=== PATIENT | female | born 1965 | race Two or more races ===

== ENCOUNTER 2017-05-17 13:04 | Emergency (ER) | payer BC ==
[2017-05-17 13:08] VITALS: BMI 25.0
--- NOTE | 2017-05-17 13:33 | PDOC ---
History of Present Illness - General Chief Complaint: Edema Stated Complaint: RT CALF SWELLING (REFERRED) Time Seen by Provider: 05/17/17 13:18 History Source: Patient Exam Limitations: No Limitations - History of Present Illness Initial Comments: 05/17/17 13:32 The patient is a 51 year old female, with a significant past medical history of HTN, who presents to the emergency department with Right lower leg swelling x 2 weeks. Patient states she had pain in that leg originally, which has resolved. However, the swelling has not. Patient went into urgent care today and was sent into the ED. Patient denies any recent travel, OCP use, chest pain, shortness of breath, headache and dizziness. Denies fever, chills, nausea, vomit, diarrhea and constipation. Denies dysuria, frequency, urgency and hematuria. Denies any hx of blood disorders Allergies: nkda Past surgical history: Appendectomy Social history: +smoking 1/2 ppd x 30 years PMD - Dr. Sood 05/17/17 13:44 Past History - Past Medical History Allergies/Adverse Reactions: Allergies Allergy/AdvReac Type Severity Reaction Status Date / Time No Known Allergies Allergy Verified 05/17/17 13:08 Home Medications: Ambulatory Orders Amlodipine Besylate/Benazepril [Lotrel 10-20 mg Capsule] 1 cap PO DAILY Atenolol [Tenormin -] 50 mg PO DAILY 05/17/17 HTN: Yes - Surgical History Appendectomy: Yes - Suicide/Smoking/Psychosocial Hx Smoking History: Current every day smoker Number of Cigarettes Smoked Daily: 8 Information on smoking cessation initiated: No Hx Alcohol Use: No Drug/Substance Use Hx: No Review of Systems - Review of Systems Able to Perform ROS?: Yes Comments:: 05/17/17 13:32 GENERAL/CONSTITUTIONAL: No fever or chills. No weakness. HEAD, EYES, EARS, NOSE AND THROAT: No change in vision. No ear pain or discharge. No sore throat. CARDIOVASCULAR: No chest pain or shortness of breath RESPIRATORY: No cough, wheezing, or hemoptysis. GASTROINTESTINAL: No nausea, vomiting, diarrhea or constipation. GENITOURINARY: No dysuria, frequency, or change in urination. MUSCULOSKELETAL: No joint or muscle pain. No neck or back pain. +RLE swelling SKIN: No rash NEUROLOGIC: No headache, vertigo, loss of consciousness, or change in strength/ sensation. ENDOCRINE: No increased thirst. No abnormal weight change HEMATOLOGIC/LYMPHATIC: No anemia, easy bleeding, or history of blood clots. ALLERGIC/IMMUNOLOGIC: No hives or skin allergy. *Physical Exam - Vital Signs Last Vital Signs Temp Pulse Resp BP Pulse Ox 98.0 F 76 18 132/87 100 05/17/17 13:05 05/17/17 13:05 05/17/17 13:05 05/17/17 13:05 05/17/17 13:05 - Physical Exam Comments: 05/17/17 13:32 GENERAL: Awake, alert, and fully oriented, in no acute distress HEAD: No signs of trauma, normocephalic, atraumatic EYES: PERRLA, EOMI, sclera anicteric, conjunctiva clear ENT: Auricles normal inspection, hearing grossly normal, nares patent, oropharynx clear without exudates. Moist mucosa NECK: Normal ROM, supple, no lymphadenopathy, JVD, or masses LUNGS: No distress, speaks full sentences, clear to auscultation bilaterally HEART: Regular rate and rhythm, normal S1 and S2, no murmurs, rubs or gallops, peripheral pulses normal and equal bilaterally. ABDOMEN: Soft, nontender, normoactive bowel sounds. No guarding, no rebound. No masses EXTREMITIES: Normal inspection, Normal range of motion, +RLE edema (Right > Left ). No clubbing or cyanosis. NEUROLOGICAL: Cranial nerves II through XII grossly intact. Normal speech, normal gait, no focal sensorimotor deficits SKIN: Warm, Dry, normal turgor, no rashes or lesions noted. ED Treatment Course - LABORATORY CBC & Chemistry Diagram: 05/17/17 13:50 05/17/17 13:50 Medical Decision Making - Medical Decision Making 05/17/17 13:44 The patient is a 51 year old female, with a significant past medical history of HTN, who presents to the emergency department with Right lower leg swelling x 2 weeks. Given hx and physical exam, differential includes DVT, venous insufficiency, heart failure, lymphedema. Plan: CBC, CMP, BNP, Coags, Duplex u/s of RLE. 05/17/17 15:52 CBC unremarkable CMP- unremarkable BNP-207 Duplex- hypoechoic lesion in right medial calf. Patient stable for d/c. Patient will f/u with PMD to further evaluate lesion *DC/Admit/Observation/Transfer Diagnosis at time of Disposition: Swelling of right lower extremity - Discharge Dispostion Disposition: HOME Condition at time of disposition: Stable - Patient Instructions Additional Instructions: Please follow up with your primary care provider (Dr. Sood) within 1 week to follow up the lesion found on your right calf. If you notice chest pain, shortness of breath, or your leg is becoming more swollen or painful, please come back to the hospital immediately.
[2017-05-17 14:13] LABS: BASOPHIL 0.6 % (0-2.0); EOSINOPHIL 1.2 % (0-4.5); MCH 34.1 pg (25.7-33.7); MCHC 32.9 g/dl (32.0-36.0); MEAN CELL VOLUME 103.7 fl (80-96); MEAN PLT VOLUME 7.9 fl (7.5-11.1); NEUTROPHILS 64.6 % (42.8-82.8); PLATELET COUNT 200 K/MM3 (134-434); RDW 14.3 % (11.6-15.6); WHITE BLOOD COUNT 6.8 K/mm3 (4.0-10.0)
[2017-05-17 14:25] LABS: ALBUMIN 4.2 g/dl (3.4-5.0); ANION GAP 11 (8-16); BILIRUBIN,TOTAL 0.4 mg/dL (0.2-1.0); CALCIUM 9.4 mg/dL (8.5-10.1); CO2 25 mmol/L (21-32); CREATININE 0.8 mg/dL (0.55-1.02); GLUCOSE,RANDOM 75 mg/dL (74-106); SGOT/AST 73 U/L (15-37); SGPT/ALT 50 U/L (12-78); TOT PROT 7.8 g/dl (6.4-8.2)
[2017-05-17 14:27] LABS: ALK PHOS 95 U/L (45-117)
[2017-05-17 14:39] LABS: INR 0.98 (0.82-1.09); PROTHROMBIN TIME (PATIENT) 10.8 SEC (9.98-11.88)
--- NOTE | 2017-05-17 14:41 | PDOC ---
Attending Attestation - Resident Resident Name: LouiekavitaGio - ED Attending Attestation I have performed the following: I have examined & evaluated the patient, The case was reviewed & discussed with the resident, I agree w/resident's findings & plan, Exceptions are as noted - HPI HPI: 05/17/17 14:39 51 F with h/o HTN presents to ER with RLE swelling x 2 weeks. Pt reports initially having some cramp-like pain in the leg and felt a lump in the back of her calf. Since then, the pain has resolved, but the leg has been persistently swollen. She denies any falls or trauma to the leg. No h/o DVT/PE. Not on OCP or estrogen. No h/o immobilization or recent travel. Denies CP/SOB. - Physicial Exam PE: 05/17/17 14:40 "GENERAL: Awake, alert, and fully oriented, in no acute distress HEAD: No signs of trauma EYES: PERRLA, EOMI, sclera anicteric, conjunctiva clear ENT: Auricles normal inspection, hearing grossly normal, nares patent, oropharynx clear without exudates. Moist mucosa NECK: Nontender, no stepoffs, Normal ROM, supple, no lymphadenopathy, JVD, or masses LUNGS: Breath sounds equal, clear to auscultation bilaterally. No wheezes, and no crackles HEART: Regular rate and rhythm, normal S1 and S2, no murmurs, rubs or gallops ABDOMEN: Soft, nontender, normoactive bowel sounds. No guarding, no rebound. No masses EXTREMITIES: RLE +1 edema, no palpable cords or calf tenderness NEUROLOGICAL: Cranial nerves II through XII intact. 5/5 strength and sensation in all extremities, Normal speech, normal gait SKIN: Warm, Dry, normal turgor, no rashes or lesions noted. " - Medical Decision Making 05/17/17 14:40 51 F with asymmetric leg swelling x 2 weeks, concerning for DVT. Pt with no s/s PE at this time. Vitals stable. - Labs - RLE doppler 05/17/17 15:54 US negative for DVT. Possible hematoma vs phlegmon found. Pt with no signs of infection on exam. Leg is nontender. Likely hematoma.
[2017-05-17 14:42] LABS: ACTIVATED PTT 31.9 SECONDS (26.9-34.4)
[2017-05-17 16:49] VITALS: BP 128/77; PULSE 74; TEMP 98
== END 2017-05-17 16:20 | disposition home or self-care (01) ==
LOC: JER 13:04
DX: R22.41 Localized swelling, mass and lump, right lower limb (principal); F17.210 Nicotine dependence, cigarettes, uncomplicated; I10 Essential (primary) hypertension
CPT/HCPCS: 36415; 80053; 83880; 85025; 85610; 85730; 93971-TC; 99284-25

== ENCOUNTER 2020-12-25 15:00 | Emergency (ER) | payer BC ==
[2020-12-25 15:09] VITALS: BP 119/84; PULSE 80; TEMP 98.1; BMI 26.6
[2020-12-25 17:41] LABS: BASO % 0.9 % (0-2.0); EOS % 0.7 % (0-4.5); HEMATOCRIT 37.9 % (32.4-45.2); HEMOGLOBIN 12.8 GM/dL (10.7-15.3); LYMPH % 36.3 % (8-40); MCH 36.3 pg (25.7-33.7); MCHC 33.7 g/dl (32.0-36.0); MEAN CELL VOLUME 107.8 fl (80-96); MEAN PLT VOLUME 8.6 fl (7.5-11.1); MONO % 11.3 % (3.8-10.2); NEUT % 50.8 % (42.8-82.8); PLATELET COUNT 204 K/MM3 (134-434); RBC 3.52 M/mm3 (3.60-5.2); RDW 14.7 % (11.6-15.6); WHITE BLOOD COUNT 5.3 K/mm3 (4.0-10.0)
[2020-12-25 17:51] LABS: CALCIUM 8.6 mg/dL (8.5-10.1)
[2020-12-25 17:52] LABS: ALBUMIN 4.2 g/dl (3.4-5.0); BLOOD UREA NITROGEN 13.6 mg/dL (7-18)
[2020-12-25 17:55] LABS: BILIRUBIN,TOTAL 0.4 mg/dL (0.2-1); CREATININE 0.7 mg/dL (0.55-1.3)
[2020-12-25 17:57] LABS: TOT PROT 8.1 g/dl (6.4-8.2)
[2020-12-25 18:35] LABS: ANISOCYTOSIS 2+; MACROCYTOSIS 2+; PLATELET ESTIMATE ADEQUATE
== END 2020-12-25 19:45 | disposition home or self-care (01) ==
LOC: JER 15:00
DX: M79.604 Pain in right leg (principal)
CPT/HCPCS: 36415; 80053; 85025; 99283-25

== ENCOUNTER 2022-05-08 20:17 | Inpatient (IN) | payer BC ==
[2022-05-08 22:18] LABS: BASO % 0.7 % (0-2.0); EOS % 1.1 % (0-4.5); HEMATOCRIT 35.7 % (32.4-45.2); LYMPH % 33.6 % (8-40); MCH 35.9 pg (25.7-33.7); MCHC 33.7 g/dl (32.0-36.0); MEAN CELL VOLUME 106.6 fl (80-96); MEAN PLT VOLUME 8.4 fl (7.5-11.1); MONO % 14.3 % (3.8-10.2); NEUT % 50.3 % (42.8-82.8); PLATELET COUNT 161 10^3/uL (134-434); RBC 3.35 M/mm3 (3.60-5.2); RDW 14.8 % (11.6-15.6); WHITE BLOOD COUNT 4.4 K/mm3 (4.0-10.0)
[2022-05-08 22:20] LABS: EPI CELLS >36 /uL (0-25.1); HYALINE CASTS 75 /uL (0-3.1); PH,URINE 5.5 (5.0-8.0); URINE APPEARANCE TURBID; URINE BACTERIA 7705 /uL (0-1359); URINE BILIRUBIN 3+ (NEGATIVE); URINE COLOR DK YELLOW; URINE GLUCOSE (UA) NEGATIVE (NEGATIVE); URINE KETONE 1+ (NEGATIVE); URINE LEUK ESTERASE 1+ (NEGATIVE); URINE NITRITE POSITIVE (NEGATIVE); URINE PROTEIN 2+ (NEGATIVE); URINE WBC 79 /uL (0-25.8)
[2022-05-08 22:25] LABS: INR 1.09 (0.83-1.09); PROTHROMBIN TIME (PATIENT) 12.6 SEC (9.7-13.0)
[2022-05-08 22:27] LABS: ACTIVATED PTT 29.8 SECONDS (25.2-36.5)
[2022-05-08 22:36] LABS: CHLORIDE 98 mmol/L (98-107); SODIUM 139 mmol/L (136-145)
[2022-05-08 22:38] LABS: ALBUMIN 3.5 g/dl (3.4-5.0); ANION GAP 13 MMOL/L (8-16); CALCIUM 8.6 mg/dL (8.5-10.1); CO2 27 mmol/L (21-32)
[2022-05-08 22:39] LABS: BLOOD UREA NITROGEN 16.1 mg/dL (7-18)
[2022-05-08 22:40] LABS: GLUCOSE,RANDOM 116 mg/dL (74-106)
[2022-05-08 22:41] LABS: SGPT/ALT 66 U/L (13-61)
[2022-05-08 22:42] LABS: CHOLESTEROL 193 mg/dL (50-200); CREATININE 0.8 mg/dL (0.55-1.3); SGOT/AST 145 U/L (15-37)
[2022-05-08 22:43] LABS: TOT PROT 7.1 g/dl (6.4-8.2); TRIGLYCERIDES 101 mg/dL (0-150)
[2022-05-08 22:44] LABS: BILIRUBIN,TOTAL 0.7 mg/dL (0.2-1); HDL CHOLESTEROL 79 mg/dL (40-60); LDL CHOLESTEROL (ONLY SJRH) 92 mg/dL (5-100); URINE RBC 42 /uL (0-23.9)
[2022-05-08 22:45] LABS: ALK PHOS 182 U/L (45-117)
[2022-05-08] MEDS ORDERED: CEFTRIAXONE 1,000 MG in DEXTROSE 5%-WATER - 50 ML IVPB ONE (22:48)
[2022-05-08] MEDS ORDERED: POTASSIUM CHLORIDE TABS 20 MEQ TABLET.ER (FP) PO ONE (22:48)
[2022-05-08 22:56] LABS: ANISOCYTOSIS 1+; MACROCYTOSIS 2+; TARGET CELLS 2+
[2022-05-08] MEDS ORDERED: POTASSIUM CHLORIDE ORAL LIQUID 20 MEQ/15 ML ONE (23:07)
[2022-05-08] MEDS ORDERED: CEFTRIAXONE 1 GM/50 ML BAG ONE (23:07)
[2022-05-09 02:07] LABS: MAGNESIUM 0.9 mg/dL (1.8-2.4)
[2022-05-09 02:11] LABS: PHOSPHOROUS 2.6 mg/dL (2.5-4.9)
[2022-05-09] MEDS ORDERED: POTASSIUM CHLORIDE ORAL LIQUID 20 MEQ/15 ML PO ONE (02:18)
[2022-05-09] MEDS ORDERED: FOLIC ACID INJECTION - 1 MG, THIAMINE HCL 100 MG, MULTIVIT INJECTION ADULT 10 ML in SOD... IVPB ONE (02:21)
[2022-05-09] MEDS ORDERED: KCL 10 MEQ IVPB 30 MEQ/300 ML INFUS.BAG IVPB ONE (02:27)
[2022-05-09] MEDS ORDERED: POTASSIUM CHLORIDE ORAL LIQUID 20 MEQ/15 ML ONE (02:27)
[2022-05-09] MEDS ORDERED: MAGNESIUM 4GM/H20 - 4 GM/100 ML IVPB IVPB ONE (02:30)
[2022-05-09] MEDS: KCL 10 MEQ IVPB 10 MEQ/100 ML INFUS.BAG IVPB SCH ×3 (02:36→04:58)
[2022-05-09] MEDS ORDERED: LORazepam 1 MG TABLET PO PRN (02:36)
[2022-05-09] MEDS ORDERED: MAGNESIUM SULFATE IN WATER 4 GM/50 ML BAG IVPB ONE (02:45)
[2022-05-09] MEDS: DEXTROSE 5%-NORMAL SALINE 1,000 ML IV SCH ×2 (03:37→14:30)
[2022-05-09] MEDS ORDERED: LOPERAMIDE HCL 2 MG CAPSULE PO ONE (04:29)
[2022-05-09] MEDS ORDERED: LORazepam 1 MG TABLET PO SCH (05:00)
[2022-05-09] MEDS ORDERED: LORazepam 1 MG TABLET ONE (05:11)
[2022-05-09 07:16] LABS: BASO % 0.5 % (0-2.0); EOS % 1.5 % (0-4.5); HEMATOCRIT 32.1 % (32.4-45.2); HEMOGLOBIN 10.9 GM/dL (10.7-15.3); LYMPH % 29.9 % (8-40); MCH 36.4 pg (25.7-33.7); MCHC 33.9 g/dl (32.0-36.0); MEAN CELL VOLUME 107.4 fl (80-96); MEAN PLT VOLUME 8.6 fl (7.5-11.1); MONO % 15.9 % (3.8-10.2); NEUT % 52.2 % (42.8-82.8); PLATELET COUNT 153 10^3/uL (134-434); RBC 2.99 M/mm3 (3.60-5.2); RDW 14.7 % (11.6-15.6); WHITE BLOOD COUNT 4.5 K/mm3 (4.0-10.0)
[2022-05-09 07:43] LABS: ALBUMIN 3.1 g/dl (3.4-5.0); BLOOD UREA NITROGEN 15.3 mg/dL (7-18); CALCIUM 8.1 mg/dL (8.5-10.1); MAGNESIUM 2.7 mg/dL (1.8-2.4)
[2022-05-09 07:46] LABS: CREATININE 0.7 mg/dL (0.55-1.3); PHOSPHOROUS 1.5 mg/dL (2.5-4.9)
[2022-05-09 07:48] LABS: BILIRUBIN,TOTAL 0.8 mg/dL (0.2-1); TOT PROT 6.3 g/dl (6.4-8.2)
[2022-05-09] MEDS ORDERED: LORazepam 2 MG/ML SDV VIAL IVPUSH PRN (08:30)
[2022-05-09] MEDS ORDERED: NAPH,MB-DB/K PH,MBDB POWDER PACKET PO ONE ×2 (09:04→14:12)
[2022-05-09] MEDS ORDERED: THIAMINE HCL 200 MG/2 ML VIAL ONE (09:56)
[2022-05-09] MEDS ORDERED: ENOXAPARIN NA (PORCINE) 40 MG/0.4 ML DISP.SYRIN SQ ONE (09:57)
[2022-05-09] MEDS ORDERED: FOLIC ACID 1 MG TABLET (FP) ONE (09:57)
[2022-05-09] MEDS ORDERED: NICOTINE 7 MG/24 HOURS TOPICAL PATCH TD ONE (09:57)
[2022-05-09] MEDS ORDERED: NAPH,MB-DB/K PH,MBDB POWDER PACKET ONE (09:57)
[2022-05-09] MEDS: FOLIC ACID 1 MG TABLET (FP) PO SCH (09:58)
[2022-05-09] MEDS: NICOTINE 7 MG/24 HOURS TOPICAL PATCH TD SCH (09:58)
[2022-05-09] MEDS: ENOXAPARIN NA (PORCINE) 40 MG/0.4 ML DISP.SYRIN SQ SCH (09:58)
[2022-05-09] MEDS: THIAMINE HCL 200 MG/2 ML VIAL IVPB SCH (09:58)
[2022-05-09] MEDS ORDERED: THIAMINE HCL 100 MG TABLET (FP) PO SCH (10:00)
[2022-05-09 11:00] VITALS: RESP 18
[2022-05-09 12:20] VITALS: BMI 30.9
[2022-05-09] MEDS: CEFTRIAXONE 1 GM in DEXTROSE 5%-WATER - 50 ML IVPB SCH (22:45)
[2022-05-10] MEDS: DEXTROSE 5%-NORMAL SALINE 1,000 ML IV SCH ×2 (02:55→11:07)
[2022-05-10] MEDS ORDERED: LORazepam 1 MG TABLET PO SCH (05:00)
[2022-05-10 09:37] LABS: HEMATOCRIT 31.3 % (32.4-45.2); HEMOGLOBIN 10.3 GM/dL (10.7-15.3); MCH 35.8 pg (25.7-33.7); MEAN CELL VOLUME 108.5 fl (80-96); MEAN PLT VOLUME 9.1 fl (7.5-11.1); PLATELET COUNT 174 10^3/uL (134-434); RBC 2.88 M/mm3 (3.60-5.2); RDW 15.2 % (11.6-15.6); WHITE BLOOD COUNT 4.4 K/mm3 (4.0-10.0)
[2022-05-10] MEDS ORDERED: PATIENT'S OWN MEDICATION (NON-FORMULARY) (Amlodipine Besylate/Benazepril [Lotrel 10-20 Mg PO SCH (10:00)
[2022-05-10 10:22] LABS: ALBUMIN 2.8 g/dl (3.4-5.0); CALCIUM 7.6 mg/dL (8.5-10.1)
[2022-05-10 10:24] LABS: BLOOD UREA NITROGEN 5.6 mg/dL (7-18); MAGNESIUM 1.6 mg/dL (1.8-2.4)
[2022-05-10 10:25] LABS: CREATININE 0.6 mg/dL (0.55-1.3)
[2022-05-10 10:26] LABS: PHOSPHOROUS 2.8 mg/dL (2.5-4.9)
[2022-05-10 10:27] LABS: BILIRUBIN,TOTAL 0.3 mg/dL (0.2-1); TOT PROT 5.6 g/dl (6.4-8.2)
[2022-05-10] MEDS ORDERED: MAGNESIUM 2GM/50ML STERILE WATER IVPB IVPB ONE (10:47)
[2022-05-10] MEDS: CEFTRIAXONE 1 GM in DEXTROSE 5%-WATER - 50 ML IVPB SCH (10:57)
[2022-05-10] MEDS: ENOXAPARIN NA (PORCINE) 40 MG/0.4 ML DISP.SYRIN SQ SCH (10:58)
[2022-05-10] MEDS: amLODIPine BESYLATE 10 MG TABLET (FP) PO SCH (11:00)
[2022-05-10] MEDS: NICOTINE 7 MG/24 HOURS TOPICAL PATCH TD SCH (11:00)
[2022-05-10] MEDS: FOLIC ACID 1 MG TABLET (FP) PO SCH (11:00)
[2022-05-10] MEDS: LISINOPRIL 20 MG TABLET PO SCH (11:00)
[2022-05-10] MEDS: ATENOLOL 50 MG TABLET (FP) PO SCH (11:00)
[2022-05-10] MEDS: THIAMINE HCL 200 MG/2 ML VIAL IVPB SCH ×2 (11:01→21:26)
[2022-05-10] MEDS: CYANOCOBALAMIN 1,000 MCG TABLET (FP) PO SCH (17:48)
[2022-05-11] MEDS ORDERED: LORazepam 0.5 MG TABLET PO PRN
[2022-05-11] MEDS: DEXTROSE 5%-NORMAL SALINE 1,000 ML IV SCH (02:32)
[2022-05-11] MEDS ORDERED: LORazepam 0.5 MG TABLET PO SCH (05:00)
[2022-05-11] MEDS: THIAMINE HCL 200 MG/2 ML VIAL IVPB SCH ×3 (06:51→21:29)
[2022-05-11 07:58] LABS: HEMATOCRIT 28.9 % (32.4-45.2); HEMOGLOBIN 9.8 GM/dL (10.7-15.3); MCH 36.2 pg (25.7-33.7); MCHC 33.8 g/dl (32.0-36.0); MEAN CELL VOLUME 107.1 fl (80-96); MEAN PLT VOLUME 8.1 fl (7.5-11.1); PLATELET COUNT 161 10^3/uL (134-434); WHITE BLOOD COUNT 4.3 K/mm3 (4.0-10.0)
[2022-05-11 08:08] LABS: ALBUMIN 2.6 g/dl (3.4-5.0); BLOOD UREA NITROGEN 3.5 mg/dL (7-18); CALCIUM 7.7 mg/dL (8.5-10.1); MAGNESIUM 1.6 mg/dL (1.8-2.4)
[2022-05-11 08:12] LABS: BILIRUBIN,TOTAL 0.3 mg/dL (0.2-1); CREATININE 0.6 mg/dL (0.55-1.3); PHOSPHOROUS 3.2 mg/dL (2.5-4.9); TOT PROT 5.3 g/dl (6.4-8.2)
[2022-05-11] MEDS: CEFTRIAXONE 1 GM in DEXTROSE 5%-WATER - 50 ML IVPB SCH (09:56)
[2022-05-11] MEDS: FOLIC ACID 1 MG TABLET (FP) PO SCH (09:56)
[2022-05-11] MEDS: LISINOPRIL 20 MG TABLET PO SCH (09:56)
[2022-05-11] MEDS: ATENOLOL 50 MG TABLET (FP) PO SCH (09:56)
[2022-05-11] MEDS: amLODIPine BESYLATE 10 MG TABLET (FP) PO SCH (09:56)
[2022-05-11] MEDS: ENOXAPARIN NA (PORCINE) 40 MG/0.4 ML DISP.SYRIN SQ SCH (09:56)
[2022-05-11] MEDS: NICOTINE 7 MG/24 HOURS TOPICAL PATCH TD SCH (09:56)
[2022-05-11] MEDS: CYANOCOBALAMIN 1,000 MCG TABLET (FP) PO SCH (10:03)
[2022-05-11] MEDS ORDERED: MAGNESIUM SULF 50% (8.12 MEQ/2 ML-1 GM VIAL) IVPB ONE (11:45)
[2022-05-12] MEDS ORDERED: LORazepam 0.5 MG TABLET PO ONE (05:00)
[2022-05-12] MEDS: THIAMINE HCL 200 MG/2 ML VIAL IVPB SCH ×2 (07:23→14:49)
[2022-05-12 10:14] LABS: HEMOGLOBIN 11.3 GM/dL (10.7-15.3); MCH 35.8 pg (25.7-33.7); MCHC 33.3 g/dl (32.0-36.0); MEAN CELL VOLUME 107.4 fl (80-96); MEAN PLT VOLUME 8.2 fl (7.5-11.1); PLATELET COUNT 207 10^3/uL (134-434); RBC 3.17 M/mm3 (3.60-5.2); RDW 15.1 % (11.6-15.6); WHITE BLOOD COUNT 4.5 K/mm3 (4.0-10.0)
[2022-05-12] MEDS: amLODIPine BESYLATE 10 MG TABLET (FP) PO SCH (10:44)
[2022-05-12] MEDS: CEFTRIAXONE 1 GM in DEXTROSE 5%-WATER - 50 ML IVPB SCH (10:44)
[2022-05-12] MEDS: ATENOLOL 50 MG TABLET (FP) PO SCH (10:44)
[2022-05-12] MEDS: LISINOPRIL 20 MG TABLET PO SCH (10:44)
[2022-05-12] MEDS: NICOTINE 7 MG/24 HOURS TOPICAL PATCH TD SCH (10:45)
[2022-05-12] MEDS: CYANOCOBALAMIN 1,000 MCG TABLET (FP) PO SCH (10:45)
[2022-05-12] MEDS: ENOXAPARIN NA (PORCINE) 40 MG/0.4 ML DISP.SYRIN SQ SCH (10:45)
[2022-05-12] MEDS: FOLIC ACID 1 MG TABLET (FP) PO SCH (10:45)
[2022-05-12 10:49] LABS: BILIRUBIN,TOTAL 0.4 mg/dL (0.2-1); BLOOD UREA NITROGEN 4.8 mg/dL (7-18); CALCIUM 8.7 mg/dL (8.5-10.1); CREATININE 0.8 mg/dL (0.55-1.3); MAGNESIUM 1.6 mg/dL (1.8-2.4); TOT PROT 6.5 g/dl (6.4-8.2)
[2022-05-12 10:51] LABS: ALBUMIN 3.2 g/dl (3.4-5.0)
[2022-05-12 12:59] LABS: PHOSPHOROUS 3.6 mg/dL (2.5-4.9)
[2022-05-12 15:40] VITALS: BP 110/76; PULSE 75; TEMP 98.1
== END 2022-05-12 15:57 | disposition home or self-care (01) | DRG 92 ==
LOC: JER 20:17 → JERBED 21:43 → J6S 05-09 11:41
PROVIDERS: ADMIT Internal Medicine; ATTEND Internal Medicine
DX: R26.81 Unsteadiness on feet (principal); E51.2 Wernicke's encephalopathy; N39.0 Urinary tract infection, site not specified; R42 Dizziness and giddiness; I10 Essential (primary) hypertension; E87.6 Hypokalemia; E83.42 Hypomagnesemia; E83.39 Other disorders of phosphorus metabolism; R19.7 Diarrhea, unspecified
CPT/HCPCS: 0241U-QW; 36415; 70450-TC; 70551-TC; 71046-TC-FY; 76705-TC; 80048; 80053; 80061; 80307; 81003; 82550; 82607; 82746; 82962; 83036; 83735; 84100; 84484; 85025; 85027; 85610; 85730; 86704; 86803; 86850; 86900; 86901; 87086; 87340; 87517; 93005; 93010; 97116-GP; 97162-GP; 99285-25

== ENCOUNTER 2022-11-23 20:56 | Observation (INO) | payer BC ==
[2022-11-23] MEDS ORDERED: LACTATED RINGERS SOLUTION 1000 ML INFUS.BAG IV ONE (21:49)
[2022-11-23 22:19] LABS: BASO % 0.8 % (0-2.0); EOS % 1.3 % (0-4.5); HEMATOCRIT 34.1 % (32.4-45.2); HEMOGLOBIN 11.7 GM/dL (10.7-15.3); LYMPH % 31.2 % (8-40); MCH 35.5 pg (25.7-33.7); MCHC 34.2 g/dl (32.0-36.0); MEAN CELL VOLUME 103.8 fl (80-96); MEAN PLT VOLUME 8.9 fl (7.5-11.1); MONO % 13.7 % (3.8-10.2); PLATELET COUNT 128 10^3/uL (134-434); RBC 3.29 M/mm3 (3.60-5.2); RDW 15.4 % (11.6-15.6); WHITE BLOOD COUNT 5.9 K/mm3 (4.0-10.0)
[2022-11-23 22:36] LABS: POTASSIUM 3.1 mmol/L (3.5-5.1)
[2022-11-23 22:37] LABS: CALCIUM 8.1 mg/dL (8.5-10.1)
[2022-11-23 22:38] LABS: ALBUMIN 3.7 g/dl (3.4-5.0); BLOOD UREA NITROGEN 49.8 mg/dL (7-18)
[2022-11-23] MEDS ORDERED: POTASSIUM CHLORIDE ORAL LIQUID 20 MEQ/15 ML PO ONE (22:40)
[2022-11-23] MEDS ORDERED: MAGNESIUM SULF 50% (8.12 MEQ/2 ML-1 GM VIAL) IVPB ONE (22:40)
[2022-11-23 22:43] LABS: BILIRUBIN,TOTAL 0.9 mg/dL (0.2-1); TOT PROT 7.4 g/dl (6.4-8.2)
[2022-11-23] MEDS ORDERED: MAGNESIUM SULFATE IN WATER 2 GM/50 ML IVPB IVPB ONE (22:44)
[2022-11-23] MEDS ORDERED: POTASSIUM CHLORIDE ORAL LIQUID 20 MEQ/15 ML ONE (22:44)
[2022-11-24 00:15] LABS: EPI CELLS >36 /uL (0-25.1); HYALINE CASTS 4 /uL (0-3.1); PH,URINE 5.5 (5.0-8.0); URINE APPEARANCE CLEAR; URINE BACTERIA 313 /uL (0-1359); URINE BILIRUBIN NEGATIVE (NEGATIVE); URINE COLOR YELLOW; URINE GLUCOSE (UA) NEGATIVE (NEGATIVE); URINE KETONE TRACE (NEGATIVE); URINE LEUK ESTERASE TRACE (NEGATIVE); URINE NITRITE NEGATIVE (NEGATIVE); URINE PROTEIN 1+ (NEGATIVE); URINE WBC 38 /uL (0-25.8)
[2022-11-24] MEDS ORDERED: MAGNESIUM SULF 50% (8.12 MEQ/2 ML-1 GM VIAL) IVPB ONE (00:42)
[2022-11-24] MEDS ORDERED: MAGNESIUM SULFATE IN WATER 2 GM/50 ML IVPB IVPB ONE (00:43)
[2022-11-24 02:57] VITALS: BMI 24.6
[2022-11-24] MEDS: SODIUM CHLORIDE 1,000 ML IV SCH ×2 (04:32→13:55)
[2022-11-24] MEDS: HEPARIN NA (PORCINE) 5,000 UNITS/ML 1ML VIAL SQ SCH ×3 (06:39→21:22)
[2022-11-24 07:40] LABS: HEMATOCRIT 32.5 % (32.4-45.2); HEMOGLOBIN 11.1 GM/dL (10.7-15.3); MCH 35.7 pg (25.7-33.7); MEAN CELL VOLUME 104.9 fl (80-96); PLATELET COUNT 121 10^3/uL (134-434); RDW 15.4 % (11.6-15.6); WHITE BLOOD COUNT 4.7 K/mm3 (4.0-10.0)
[2022-11-24 07:43] LABS: POTASSIUM 3.5 mmol/L (3.5-5.1)
[2022-11-24 07:48] LABS: ALBUMIN 3.1 g/dl (3.4-5.0); BLOOD UREA NITROGEN 43.9 mg/dL (7-18); CALCIUM 7.7 mg/dL (8.5-10.1); MAGNESIUM 2.3 mg/dL (1.8-2.4)
[2022-11-24 07:51] LABS: CREATININE 1.2 mg/dL (0.55-1.3); PHOSPHOROUS 3.3 mg/dL (2.5-4.9)
[2022-11-24 07:52] LABS: BILIRUBIN,TOTAL 0.8 mg/dL (0.2-1); TOT PROT 6.4 g/dl (6.4-8.2)
[2022-11-24 08:15] LABS: URINE RBC 26.8 /uL (0-23.9)
[2022-11-24] MEDS ORDERED: PATIENT'S OWN MEDICATION (NON-FORMULARY) (Amlodipine Besylate/Benazepril [Lotrel 10-20 Mg PO SCH (10:00)
[2022-11-24] MEDS: ATENOLOL 50 MG TABLET (FP) PO SCH (10:38)
[2022-11-24] MEDS: CEFTRIAXONE 1 GM in DEXTROSE 5%-WATER - 50 ML IVPB SCH (10:42)
[2022-11-24 12:50] LABS: HIV INTERPRETATION NEGATIVE (NEGATIVE)
[2022-11-24] MEDS ORDERED: LORazepam 2 MG/ML SDV VIAL IVPUSH PRN (17:20)
[2022-11-24] MEDS: VANCOMYCIN 250 MG/5 ML ORAL SOLUTION PO SCH ×2 (18:30→23:19)
[2022-11-25] MEDS: SODIUM CHLORIDE 1,000 ML IV SCH ×4 (05:25→16:47)
[2022-11-25] MEDS: HEPARIN NA (PORCINE) 5,000 UNITS/ML 1ML VIAL SQ SCH ×3 (05:26→22:31)
[2022-11-25] MEDS: VANCOMYCIN 250 MG/5 ML ORAL SOLUTION PO SCH ×4 (05:26→23:53)
[2022-11-25] MEDS: FOLIC ACID 1 MG TABLET (FP) PO SCH (09:51)
[2022-11-25] MEDS: ATENOLOL 50 MG TABLET (FP) PO SCH (09:51)
[2022-11-25] MEDS: CEFTRIAXONE 1 GM in DEXTROSE 5%-WATER - 50 ML IVPB SCH (09:51)
[2022-11-25] MEDS: THIAMINE HCL 100 MG TABLET (FP) PO SCH (09:51)
[2022-11-25 10:10] LABS: BASO % 0.7 % (0-2.0); EOS % 1.4 % (0-4.5); HEMATOCRIT 31.6 % (32.4-45.2); HEMOGLOBIN 11.2 GM/dL (10.7-15.3); LYMPH % 32.8 % (8-40); MCH 37.3 pg (25.7-33.7); MCHC 35.6 g/dl (32.0-36.0); MEAN CELL VOLUME 104.7 fl (80-96); MEAN PLT VOLUME 8.8 fl (7.5-11.1); MONO % 14.9 % (3.8-10.2); NEUT % 50.2 % (42.8-82.8); PLATELET COUNT 149 10^3/uL (134-434); RBC 3.02 M/mm3 (3.60-5.2); RDW 15.4 % (11.6-15.6); WHITE BLOOD COUNT 3.8 K/mm3 (4.0-10.0)
[2022-11-25 10:38] LABS: CALCIUM 8.2 mg/dL (8.5-10.1)
[2022-11-25 10:39] LABS: ALBUMIN 3.2 g/dl (3.4-5.0); BLOOD UREA NITROGEN 21.6 mg/dL (7-18); MAGNESIUM 1.5 mg/dL (1.8-2.4)
[2022-11-25 10:42] LABS: CREATININE 0.8 mg/dL (0.55-1.3)
[2022-11-25 10:43] LABS: BILIRUBIN,TOTAL 1.1 mg/dL (0.2-1); TOT PROT 6.6 g/dl (6.4-8.2)
[2022-11-25 10:46] LABS: POTASSIUM 3.6 mmol/L (3.5-5.1)
[2022-11-25] MEDS ORDERED: MAGNESIUM SULF 50% (8.12 MEQ/2 ML-1 GM VIAL) IVPB ONE (10:59)
[2022-11-26] MEDS: HEPARIN NA (PORCINE) 5,000 UNITS/ML 1ML VIAL SQ SCH ×2 (06:40→14:52)
[2022-11-26] MEDS: VANCOMYCIN 250 MG/5 ML ORAL SOLUTION PO SCH ×2 (06:41→11:36)
[2022-11-26 09:27] LABS: EOS % 1.4 % (0-4.5); HEMATOCRIT 31.7 % (32.4-45.2); LYMPH % 40.7 % (8-40); MCH 36.1 pg (25.7-33.7); MCHC 34.9 g/dl (32.0-36.0); MEAN CELL VOLUME 103.6 fl (80-96); MEAN PLT VOLUME 9.1 fl (7.5-11.1); NEUT % 41.9 % (42.8-82.8); PLATELET COUNT 173 10^3/uL (134-434); RBC 3.06 M/mm3 (3.60-5.2); RDW 14.6 % (11.6-15.6); WHITE BLOOD COUNT 5.1 K/mm3 (4.0-10.0)
[2022-11-26 09:51] LABS: POTASSIUM 3.5 mmol/L (3.5-5.1)
[2022-11-26 09:53] LABS: CALCIUM 8.3 mg/dL (8.5-10.1)
[2022-11-26 09:54] LABS: ALBUMIN 3.2 g/dl (3.4-5.0); BLOOD UREA NITROGEN 12.2 mg/dL (7-18); MAGNESIUM 1.1 mg/dL (1.8-2.4)
[2022-11-26 09:57] LABS: CREATININE 0.7 mg/dL (0.55-1.3)
[2022-11-26 09:58] LABS: BILIRUBIN,TOTAL 0.6 mg/dL (0.2-1); TOT PROT 6.6 g/dl (6.4-8.2)
[2022-11-26] MEDS: CEFTRIAXONE 1 GM in DEXTROSE 5%-WATER - 50 ML IVPB SCH (11:35)
[2022-11-26] MEDS: THIAMINE HCL 100 MG TABLET (FP) PO SCH (11:36)
[2022-11-26] MEDS: FOLIC ACID 1 MG TABLET (FP) PO SCH (11:36)
[2022-11-26] MEDS: ATENOLOL 50 MG TABLET (FP) PO SCH (11:36)
[2022-11-26 13:59] VITALS: RESP 16
[2022-11-26 14:04] VITALS: BP 132/84; PULSE 72; TEMP 98.3
[2022-11-26] MEDS: SODIUM CHLORIDE 1,000 ML IV SCH (14:51)
[2022-11-26 14:54] LABS: PH,URINE 5.5 (5.0-8.0); URINE APPEARANCE CLEAR; URINE BILIRUBIN NEGATIVE (NEGATIVE); URINE COLOR YELLOW; URINE GLUCOSE (UA) NEGATIVE (NEGATIVE); URINE KETONE NEGATIVE (NEGATIVE); URINE LEUK ESTERASE NEGATIVE (NEGATIVE); URINE NITRITE NEGATIVE (NEGATIVE); URINE PROTEIN NEGATIVE (NEGATIVE); URINE UROBILINOGEN 0.2 mg/dL (0.2-1.0)
== END 2022-11-26 17:42 | disposition home or self-care (01) ==
LOC: JER 20:56 → JERBED 23:24 → UNDOADMOB 23:24 → INTOOBSV 11-24 01:49 → OBSVTOIN 11-24 01:49 → JERBED 11-24 02:23 → J8W 11-24 02:23 → JERBED 11-25 16:05 → J8W 11-25 16:05
PROVIDERS: ADMIT Internal Medicine; ATTEND Nurse Practitioner Acute Care
PROC: 3E03329 Introduction of Other Anti-infective into Peripheral Vein, Percutaneous Approach (ICD-10-PCS; principal; 2022-11-25)
PROC: 3E0337Z Introduction of Electrolytic and Water Balance Substance into Peripheral Vein, Percutaneous Approach (ICD-10-PCS; 2022-11-25)
PROC: 3E033GC Introduction of Other Therapeutic Substance into Peripheral Vein, Percutaneous Approach (ICD-10-PCS; 2022-11-25)
DX: N17.9 Acute kidney failure, unspecified (principal); F10.10 Alcohol abuse, uncomplicated; A49.8 Other bacterial infections of unspecified site; R42 Dizziness and giddiness; Z29.8 Encounter for other specified prophylactic measures; N12 Tubulo-interstitial nephritis, not specified as acute or chronic; R74.01 Elevation of levels of liver transaminase levels
CPT/HCPCS: 0241U-QW; 36415; 71045-TC-FY; 74176-TC; 76775-TC; 80053; 81003; 82438; 82607; 82710; 82746; 82962; 83690; 83735; 84100; 84302; 84443; 84484; 84999; 85025; 85027; 86705; 86707; 86708; 87045; 87046; 87086; 87209; 87324; 87340; 87350; 87389; 87449; 87517; 87522; 93005; 93010; 96361; 96365; 96375; 96376; 97116-GP; 97161-GP; 99285-25; G0378; J1644

== ENCOUNTER 2023-03-05 07:21 | Emergency (ER) | payer BC ==
[2023-03-05 08:39] VITALS: BMI 25.0
[2023-03-05] MEDS ORDERED: SODIUM CHLORIDE 1,000 ML IV STA ×2 (08:48→10:37)
[2023-03-05 10:09] LABS: HEMATOCRIT 32.7 % (32.4-45.2); HEMOGLOBIN 10.6 GM/dL (10.7-15.3); LYMPH % 26.3 % (8-40); MCH 33.1 pg (25.7-33.7); MCHC 32.6 g/dl (32.0-36.0); MEAN CELL VOLUME 101.6 fl (80-96); MEAN PLT VOLUME 9.1 fl (7.5-11.1); NEUT % 57.7 % (42.8-82.8); PLATELET COUNT 231 10^3/uL (134-434); RBC 3.22 M/mm3 (3.60-5.2); RDW 17.5 % (11.6-15.6); WHITE BLOOD COUNT 5.8 K/mm3 (4.0-10.0)
[2023-03-05 10:20] LABS: POTASSIUM 3.8 mmol/L (3.5-5.1)
[2023-03-05 10:23] LABS: BLOOD UREA NITROGEN 18.2 mg/dL (7-18); CALCIUM 7.4 mg/dL (8.5-10.1)
[2023-03-05 10:27] LABS: BILIRUBIN,TOTAL 0.6 mg/dL (0.2-1); TOT PROT 6.8 g/dl (6.4-8.2)
[2023-03-05 11:08] LABS: EPI CELLS 25 /uL (0-25.1); HYALINE CASTS 0 /uL (0-3.1); URINE APPEARANCE CLEAR; URINE BACTERIA 113 /uL (0-1359); URINE BILIRUBIN NEGATIVE (NEGATIVE); URINE COLOR YELLOW; URINE GLUCOSE (UA) NEGATIVE (NEGATIVE); URINE KETONE NEGATIVE (NEGATIVE); URINE LEUK ESTERASE TRACE (NEGATIVE); URINE NITRITE NEGATIVE (NEGATIVE); URINE PROTEIN NEGATIVE (NEGATIVE); URINE RBC 10 /uL (0-23.9); URINE UROBILINOGEN 0.2 mg/dL (0.2-1.0); URINE WBC 19 /uL (0-25.8)
[2023-03-05] MEDS ORDERED: CALCIUM GLUCONATE 10% - 1,000 MG/10 ML VIAL IVPB ONE (11:17)
[2023-03-05 11:30] VITALS: PULSE 73; TEMP 98
[2023-03-05] MEDS ORDERED: CALCIUM GLUCONATE 10% - 1,000 MG/10 ML VIAL ONE (11:57)
[2023-03-05] MEDS ORDERED: SODIUM CHLORIDE 500 ML IV STA (13:54)
[2023-03-05 14:36] VITALS: BP 113/81; RESP 16
== END 2023-03-05 15:12 | disposition home or self-care (01) ==
LOC: JER 07:21
PROC: 3E033NZ Introduction of Analgesics, Hypnotics, Sedatives into Peripheral Vein, Percutaneous Approach (ICD-10-PCS; principal; 2023-03-05)
PROC: 3E0337Z Introduction of Electrolytic and Water Balance Substance into Peripheral Vein, Percutaneous Approach (ICD-10-PCS; 2023-03-05)
PROC: 3E0337Z Introduction of Electrolytic and Water Balance Substance into Peripheral Vein, Percutaneous Approach (ICD-10-PCS; 2023-03-05)
PROC: 3E0337Z Introduction of Electrolytic and Water Balance Substance into Peripheral Vein, Percutaneous Approach (ICD-10-PCS; 2023-03-05)
DX: R42 Dizziness and giddiness (principal); E83.51 Hypocalcemia
CPT/HCPCS: 36415; 71045-TC-FY; 80053; 81003; 82962; 84484; 85025; 87086; 93005; 93010; 99285-25

== ENCOUNTER 2024-07-30 12:07 | Inpatient (IN) | payer BC, OTHER ==
[2024-07-30 12:23] VITALS: BMI 25.0
[2024-07-30] MEDS ORDERED: THIAMINE HCL 200 MG/2 ML VIAL ONE (13:31)
[2024-07-30] MEDS: THIAMINE HCL 200 MG/2 ML VIAL IVPB ONE (13:46)
[2024-07-30 14:13] LABS: BASO % 0.5 % (0-2.0); EOS % 0.7 % (0-4.5); HEMATOCRIT 36.2 % (32.4-45.2); LYMPH % 30.3 % (8-40); MCHC 33.2 g/dl (32.0-36.0); MEAN CELL VOLUME 102.3 fl (80-96); MEAN PLT VOLUME 8.6 fl (7.5-11.1); MONO % 15.6 % (3.8-10.2); NEUT % 52.9 % (42.8-82.8); PLATELET COUNT 131 10^3/uL (134-434); RBC 3.54 M/mm3 (3.60-5.2); RDW 16.5 % (11.6-15.6); WHITE BLOOD COUNT 6.3 K/mm3 (4.0-10.0)
[2024-07-30 14:33] LABS: CHLORIDE 98 mmol/L (98-107); SODIUM 138 mmol/L (136-145)
[2024-07-30 14:34] LABS: INR 1.04 (0.83-1.09)
[2024-07-30 14:36] LABS: ACTIVATED PTT 31.5 SECONDS (25.2-36.5); CALCIUM 8.7 mg/dL (8.5-10.1)
[2024-07-30 14:37] LABS: ALBUMIN 3.9 g/dl (3.4-5.0); ANION GAP 11 mmol/L (4-13); BLOOD UREA NITROGEN 62.9 mg/dL (7-18); CO2 29 mmol/L (21-32); GLUCOSE,RANDOM 88 mg/dL (74-106); MAGNESIUM 1.2 mg/dL (1.8-2.4)
[2024-07-30 14:40] LABS: CREATININE 1.7 mg/dL (0.55-1.3); PHOSPHOROUS 3.9 mg/dL (2.5-4.9); SGOT/AST 134 U/L (15-37); SGPT/ALT 47 U/L (13-61)
[2024-07-30 14:41] LABS: TOT PROT 7.6 g/dl (6.4-8.2)
[2024-07-30 14:43] LABS: ALK PHOS 179 U/L (45-117)
[2024-07-30] MEDS ORDERED: MAGNESIUM SULFATE IN WATER 2 GM/50 ML IVPB IVPB ONE (15:30)
[2024-07-30] MEDS ORDERED: POTASSIUM CHLORIDE TABS 20 MEQ TABLET.ER (FP) PO ONE (15:45)
[2024-07-30] MEDS: POTASSIUM CHLORIDE TABS 20 MEQ TABLET.ER (FP) PO ONE (15:57)
[2024-07-30] MEDS: MAGNESIUM SULF 50% (8.12 MEQ/2 ML-1 GM VIAL) IVPB ONE (15:57)
[2024-07-30 15:58] LABS: COCAINE, UR NEGATIVE (NEGATIVE); METHADONE, UR NEGATIVE (NEGATIVE); URINE AMPHETAMINES NEGATIVE (NEGATIVE); URINE BARBITURATES NEGATIVE (NEGATIVE); URINE BENZODIAZEPINES NEGATIVE (NEGATIVE)
[2024-07-30 15:59] LABS: PHENCYCLIDINE,URINE NEGATIVE (NEGATIVE)
[2024-07-30 16:01] LABS: OPIATES, URI NEGATIVE (NEGATIVE)
[2024-07-30] MEDS ORDERED: chlordiazePOXIDE HCL 25 MG CAPSULE ONE (17:10)
[2024-07-30] MEDS: SODIUM CHLORIDE 0.9% 500 ML INFUS.BAG IV ONE (17:14)
[2024-07-30] MEDS: chlordiazePOXIDE HCL 25 MG CAPSULE PO ONE (17:15)
[2024-07-30 19:12] LABS: EPI CELLS >36 /uL (0-25.1); HYALINE CASTS 1 /uL (0-3.1); PH,URINE 5.5 (5.0-8.0); URINE APPEARANCE CLOUDY; URINE BACTERIA >9,000 /uL (0-1359); URINE BILIRUBIN NEGATIVE (NEGATIVE); URINE COLOR YELLOW; URINE GLUCOSE (UA) NEGATIVE (NEGATIVE); URINE KETONE TRACE (NEGATIVE); URINE LEUK ESTERASE 1+ (NEGATIVE); URINE NITRITE POSITIVE (NEGATIVE); URINE PROTEIN 2+ (NEGATIVE); URINE RBC 37 /uL (0-23.9); URINE WBC 232 /uL (0-25.8)
[2024-07-30] MEDS ORDERED: LORazepam 2 MG/ML SDV VIAL IVPUSH PRN (20:38)
[2024-07-30] MEDS: MIRTAZAPINE 15 MG TABLET (FP) PO ONE (21:30)
[2024-07-31] MEDS: SODIUM CHLORIDE 0.9%/KCL 20 MEQ/1,000 ML INFUS.BAG IV SCH (10:29)
[2024-07-31] MEDS: CLOPIDOGREL BISULFATE 75 MG TABLET (FP) PO SCH (10:30)
[2024-07-31] MEDS: CEFTRIAXONE 1 G/50 ML PREMIX 50 ML IVPB SCH (10:30)
[2024-07-31 11:05] LABS: INR 1.08 (0.83-1.09); PROTHROMBIN TIME (PATIENT) 12.2 SEC (9.7-13.0)
[2024-07-31 11:18] LABS: ALBUMIN 3.2 g/dl (3.4-5.0); BLOOD UREA NITROGEN 50.8 mg/dL (7-18); CALCIUM 8.2 mg/dL (8.5-10.1); MAGNESIUM 1.6 mg/dL (1.8-2.4)
[2024-07-31 11:19] LABS: HEMATOCRIT 33.5 % (32.4-45.2); HEMOGLOBIN 11.3 GM/dL (10.7-15.3); MCH 34.6 pg (25.7-33.7); MCHC 33.6 g/dl (32.0-36.0); MEAN PLT VOLUME 8.9 fl (7.5-11.1); PLATELET COUNT 119 10^3/uL (134-434); RBC 3.25 M/mm3 (3.60-5.2)
[2024-07-31 11:21] LABS: CREATININE 1.2 mg/dL (0.55-1.3); PHOSPHOROUS 3.6 mg/dL (2.5-4.9)
[2024-07-31 11:22] LABS: BILIRUBIN,TOTAL 0.7 mg/dL (0.2-1)
[2024-07-31 11:23] LABS: TOT PROT 6.3 g/dl (6.4-8.2)
[2024-08-01 09:43] LABS: BASO % 0.6 % (0-2.0); EOS % 3.9 % (0-4.5); HEMATOCRIT 30.6 % (32.4-45.2); HEMOGLOBIN 10.6 GM/dL (10.7-15.3); MCH 35.2 pg (25.7-33.7); MCHC 34.6 g/dl (32.0-36.0); MEAN CELL VOLUME 101.9 fl (80-96); MEAN PLT VOLUME 8.6 fl (7.5-11.1); MONO % 14.4 % (3.8-10.2); NEUT % 47.1 % (42.8-82.8); PLATELET COUNT 139 10^3/uL (134-434); RBC 3.01 M/mm3 (3.60-5.2); RDW 15.3 % (11.6-15.6)
[2024-08-01 09:51] LABS: POTASSIUM 3.8 mmol/L (3.5-5.1)
[2024-08-01 09:54] LABS: CALCIUM 7.8 mg/dL (8.5-10.1)
[2024-08-01 09:55] LABS: BLOOD UREA NITROGEN 35.1 mg/dL (7-18)
[2024-08-01 09:58] LABS: CREATININE 0.9 mg/dL (0.55-1.3)
[2024-08-01 10:00] LABS: BILIRUBIN,TOTAL 0.6 mg/dL (0.2-1); TOT PROT 5.9 g/dl (6.4-8.2)
[2024-08-01] MEDS: amLODIPine BESYLATE 10 MG TABLET (FP) PO ONE (17:56)
[2024-08-03 08:38] LABS: HEMATOCRIT 32.5 % (32.4-45.2); HEMOGLOBIN 10.4 GM/dL (10.7-15.3); MCH 33.5 pg (25.7-33.7); MEAN CELL VOLUME 104.6 fl (80-96); MEAN PLT VOLUME 8.8 fl (7.5-11.1); PLATELET COUNT 208 10^3/uL (134-434); RBC 3.11 M/mm3 (3.60-5.2); RDW 15.4 % (11.6-15.6)
[2024-08-03 08:45] LABS: CHLORIDE 108 mmol/L (98-107); POTASSIUM 4.3 mmol/L (3.5-5.1); SODIUM 140 mmol/L (136-145)
[2024-08-03 08:47] LABS: CALCIUM 8.5 mg/dL (8.5-10.1)
[2024-08-03 08:48] LABS: ALBUMIN 2.9 g/dl (3.4-5.0); ANION GAP 7 mmol/L (4-13); BLOOD UREA NITROGEN 17.1 mg/dL (7-18); CO2 25 mmol/L (21-32); GLUCOSE,RANDOM 88 mg/dL (74-106)
[2024-08-03 08:51] LABS: SGOT/AST 47 U/L (15-37); SGPT/ALT 34 U/L (13-61)
[2024-08-03 08:52] LABS: BILIRUBIN,TOTAL 0.5 mg/dL (0.2-1); TOT PROT 5.9 g/dl (6.4-8.2)
[2024-08-03 08:54] LABS: ALK PHOS 127 U/L (45-117); CREATININE 0.9 mg/dL (0.55-1.3)
[2024-08-03 11:50] VITALS: RESP 18
[2024-08-04] MEDS: ATENOLOL 50 MG TABLET (FP) PO SCH (09:18)
[2024-08-04 10:34] VITALS: BP 142/87; PULSE 97; TEMP 98.4
[2024-08-04] MEDS ORDERED: MIRTAZAPINE 15 MG TABLET (FP) PO SCH (22:00)
[2024-08-04] MEDS ORDERED: ATORVASTATIN CA 80 MG TABLET (FP) PO SCH (22:00)
== END 2024-08-04 16:19 | disposition home or self-care (01) | DRG 775 ==
LOC: JER 12:07 → JERBED 17:51 → OBSVTOIN 19:34 → J6S 20:53
PROVIDERS: ADMIT Internal Medicine; ATTEND Internal Medicine
DX: F10.151 Alcohol abuse with alcohol-induced psychotic disorder with hallucinations (principal); N17.9 Acute kidney failure, unspecified; F41.8 Other specified anxiety disorders; K70.10 Alcoholic hepatitis without ascites; E87.6 Hypokalemia; M62.82 Rhabdomyolysis; F17.200 Nicotine dependence, unspecified, uncomplicated; N39.0 Urinary tract infection, site not specified; I25.10 Atherosclerotic heart disease of native coronary artery without angina pectoris; E78.5 Hyperlipidemia, unspecified; I12.9 Hypertensive chronic kidney disease with stage 1 through stage 4 chronic kidney disease, or unspecified chronic kidney disease; N18.9 Chronic kidney disease, unspecified; B96.1 Klebsiella pneumoniae [K. pneumoniae] as the cause of diseases classified elsewhere; R74.8 Abnormal levels of other serum enzymes; E86.0 Dehydration
CPT/HCPCS: 36415; 70450-TC; 70551-TC; 71046-TC-FY; 72125-TC; 76775-TC; 80053; 80307; 81003; 82550; 82553; 82607; 82746; 82962; 82977; 83690; 83735; 84100; 84443; 84484; 84703; 85025; 85027; 85610; 85730; 87040; 87086; 87186; 93005; 93010; 93306-TC; 93880-TC; 99285-25; G0378